=== PATIENT | male | born 1960 | race Caucasian/White ===

== ENCOUNTER 2017-01-22 10:06 | Emergency (ER) | payer OTHER ==
[~2017-01-22] VITALS: Ht 170.2 cm; Wt 68.0 kg
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
[~2017-01-22 10:06] MED LIST: ALPRAZOLAM PO; ALTACE PO; AMITRYPTYLINE PO; AMLODIPINE BESYL5 MG PO; ASPIRIN PO; ASPIRIN81 M2 PO; AZOR 5/20 MG TA1 TAB PO; BENAZEPRIL HCL10 M1 PO; BENTYL20 MG PO; BUTISOL SODIUM30 MG PO; CARAFATE PO; CARVEDILOL3.125 MG PO; CELEXA PO; CELEXA20 M1; CELEXA20 MG; CELEXA20 MG PO; CITALOPRAM HBR10 MG PO; FLEXERIL10 MG PO; INDERAL LA PO; LISINOPRIL20 MG PO; LODINE XL400 M1 PO; LODINE400 MG PO; MEDROL PO; MEDROL4 MG/DOSE- PO; MIRALAX17 G1 PO; MOBIC PO; NEURONTIN300 MG PO; NITROGLYGERIN0.4 MG SL; NITROGYLCERIN SUBLINGUAL; OMEPRAZOLE20 M2 PO; ORUDIS75 M1 PO; PEPCID AC20 MG; PRAVACHOL20 MG PO; PRILOSEC20 MG PO; PROPRANOLOL HCL80 M1 PO; RAMIPRIL5 MG; SKELAXIN PO; VICODIN PO; VITAMIN C500 M5 PO; VOLTAREN75 MG PO; ZETIA PO; ZITHROMAX PO; [UNRECOGNIZED DRUG - CODE]; [UNRECOGNIZED DRUG - CODE] PO
== END 2017-01-22 11:35 | disposition home or self-care (01) ==
LOC: CED 10:06 → CFTX 10:06
DX: S60.221A Contusion of right hand, initial encounter (principal); I10 Essential (primary) hypertension; X58.XXXA Exposure to other specified factors, initial encounter; Y92.89 Other specified places as the place of occurrence of the external cause
CPT/HCPCS: 29280; 73130; 99283

== ENCOUNTER → 2017-02-05 | Outpatient (CLI) | payer OTHER ==
--- NOTE | ~2017-02-05 | MR113 ---
[facility] A Service of [facility] & [facility] RADIOLOGY TEXT RESULTS PATIENT: ISAMAR LAWTON LOCATION: CMRI : 62 UNIT #: [id number] AGE: [address]: SHIRLEY ASNDOVAL MD SEX: M ORDER DR: [id number] [facility] [address] [place], [place] [address] [id number] O MR#: [id number] Acc #: [id number] NAME: ISAMAR LAWTON : 1960 SEX: M STUDY DATE/TIME: 02/05/2017 7:53 UNIT: CMRI ROOM: STUDY DESCRIPTION: MR Lumbar Wo Contrast Attending Physician: Shirley Sandoval M.D. Referring Physician: Shirley Sandoval M.D. Ordering Physician: Shirley Sandoval M.D. Primary Care Physician: iRley Salas M.D. MRI CENTER REPORT This report is preliminary unless electronic signature is present. EXAM MRI of the lumbar spine without contrast dated 02/05/2017. COMPARISON MRI lumbar spine without contrast dated 02/24/2014. HISTORY Chronic low back pain and bilateral leg pain and numbness which extends down to the toes for 15 years. Sitting for too long or walking a lot increases pain. FINDINGS Multisequence multiplanar imaging of the lumbar spine was obtained without contrast. Vertebral body heights and alignment are preserved. Degenerative disc disease is at multiple levels. Conus terminates at T12. Signal of conus and cauda equina are within normal limits. No edematous bony changes, fracture, subluxation or pars defects. Pre and paravertebral soft tissues do not demonstrate any significant abnormality. Retroperitoneum demonstrates multiple bilateral renal lesions, incompletely characterized on the current study. Relatively larger one is in the posterolateral left kidney measuring 4.4 x 3.6 cm. These are incompletely included and incompletely characterized on the current study. They are also partly noted in the previous study but cannot be cleared as there are not fully seen in them.. L1-2: Concentric disc bulge with mild inferior bilateral neural foraminal narrowing. No canal stenosis. L2-3: Mild disc bulge and mild inferior bilateral neural foraminal narrowing without significant nerve impingement. No canal stenosis. Minimal bilateral facet changes are seen. L3-4: Moderate concentric disc bulge with superimposed bilateral STS. [facility] A Service of [facility] RADIOLOGY TEXT RESULTS PATIENT: ISAMAR LAWTON LOCATION: [facility] : 62 UNIT #: [id number] AGE: [address]: SHIRLEY SANDOVAL MD SEX: M ORDER DR: foraminal to extraforaminal broad-based protrusions, worse on the right suspicious for an extruded component in the right foraminal region. Mild left and mild to moderate right neural foraminal narrowing are noted with borderline size to mild canal stenosis. Stable. L4-5: Moderate disc bulge with superimposed [id number] subarticular broad-based disc protrusion and borderline size to mild canal stenosis. Mild bilateral facet changes are noted with mild bilateral lateral recess stenosis and mild bilateral neural foraminal narrowing. There is probably a small extruded component in the center measuring 9.5 mm in height. L5-S1: Concentric disc bulge with superimposed [id number] subarticular moderate broad-based protrusion which barely touches bilateral S1 nerve roots. Mild bilateral neural foraminal narrowing is seen. Stable. Mild to moderate left facet hypertrophic change. There is increased T2 signal component associated with bilateral S1 nerve roots, more prominent in the right suspicious for a lesion like perineural cyst. It is relatively stable based on the sagittal images. IMPRESSION 1. Given the differences in slice selection there is no significant interval change in the degenerative changes at various levels. It is relatively worst from L3-4 to L5-S1. 2. Bilateral multiple renal lesions are noted, incompletely characterized on the current study. Relatively larger one is incompletely included and it measures 4.4 x 3.5 x 3.6 cm at least. Some of these lesions were also seen on the prior study but even then they were not included in completely, to help with comparisons. Correlation with prior abdominal studies are suggested. Dictated by... Lashanda Marquez M.D. THIS IS AN ELECTRONICALLY VERIFIED REPORT Lashanda Marquez M.D. at 02/05/2017 4:44 PM CPR/salazar TD: 02/05/2017 13:48 JOB #: [id number] MRI CENTER REPORT Page 1 of 1 COPY
== END | disposition home or self-care (01) ==
LOC: CMRI 06:56
DX: M51.36 Other intervertebral disc degeneration, lumbar region (principal); M47.896 Other spondylosis, lumbar region; N28.9 Disorder of kidney and ureter, unspecified
CPT/HCPCS: 72148